=== PATIENT | female | born 1960 | race Caucasian/White ===

== ENCOUNTER 2021-06-29 22:20 | Emergency (ER) | payer BC ==
[~2021-06-29] VITALS: Ht 160 cm; Wt 163.0 kg
[~2021-06-29 22:20] MED LIST: AMBEREN PO; AMOXICILL PO; CENTTAB47 PO; CIPR500T89 PO; FLAG500T PO; LORTTAB8 PO; SENO8.6T9 PO; TYLE325T5 PO
[2021-06-29 22:22] VITALS: BP 118/68
== END 2021-06-30 04:47 | disposition left against medical advice (07) ==
LOC: M ED 22:20
DX: Z53.29 Procedure and treatment not carried out because of patient's decision for other reasons (principal)